=== PATIENT | male | born 1960 | race Caucasian/White ===

== ENCOUNTER → 2017-04-17 | Outpatient (CLI) | payer MEDICARE, MEDICAID ==
[~2017-04-17] MED LIST: AMITRIPTYLINE H25 M2 PO; AUGMENTIN 875875 MG PO; CARAFATE 1 GM TA1 G1 PO; FIRST-MOUTHWAS237 ML SWISH&SPIT; HYDROCODON-ACE1 EAC5 PO; HYDROCODONE-AP1 EAC6 PO; KLOR-CON20 ME1 PO; LACTULOSE10 GM/15 M PO; METFORMIN HCL500 MG PO; MUCUS RELIEF C400 MG PO; NAPROSYN; NORCO 5-325 TA1 EACH PO; PERIDEX 0.12%473 M1 SWISH&SPIT; PRILOSEC40 MG PO; SLEEP AID50 MG PO; SYNTHROID88 MCG PO; TRINATE TABLET1 TAB PO; VANCOMYCIN100 MG/ML PO; VITAMIN B-1100 M1 PO; VITAMIN D 5050000 I1 PO; XIFAXAN550 M1 PO; ZOFRAN ODT4 MG PO
--- NOTE | 2017-04-29 23:16 | ONC ---
[place] [address] RADIATION ONCOLOGY NOTE Name: PATRICA AQUINO Room: [facility]#: [id number] Admission: 04/17/17 Attend Phys: Alessandro Pastor MD Discharge: Date of : 56 Report #: [id number] THIS REPORT FOR: //name// CC: Hung Fajardo MD DATE OF SERVICE: 04/17/2017 REFERRING PHYSICIANS: Include Hung Suarez MD; Chandan Diaz DO; Delon Odell MD; JOSE ARMANDO Piña; and Stewart Fajardo MD. [facility] phone is [phone]. 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 He had perineural invasion. The patient completed radiation therapy on 06/10/2013. INTERVAL NOTE: The patient is edentulous, but he feels like he is eating well. He indicated that his primary care physician, Dr. Suarez, manages his thyroid medication. MEDICATIONS: He thinks he is taking 150 mcg of levothyroxine per day as well as metformin, omeprazole, and amitriptyline. SOCIAL HISTORY: The patient is . Cigarettes: He quit smoking in 07/2013. Prior to that, he smoked about a 1/2 to 1 pack per day for about 40 years. REVIEW OF SYSTEMS: RESPIRATORY: Breathing was stable. He was not short of breath during his appointment. MUSCULOSKELETAL: He has good range of motion of his upper extremities. PHYSICAL EXAMINATION: VITAL SIGNS: The patient weighed 265.2 pounds on 04/17/2017 and then 246 pounds on 09/10/2017, On 04/17/2017, blood pressure was 152/91, pulse 76, respirations 24. LYMPH NODES: The patient had no palpable cervical or supraclavicular lymphadenopathy. HEAD, EYES, EARS, NOSE AND THROAT: Mouth had no suspicious visible lesions or suspicious palpable lesions. He has a surgical defect on the left side of the tongue where [place] [address] RADIATION ONCOLOGY NOTE Name: PATRICA AQUINO Room: [facility]#: [id number] Admission: 04/17/17 Attend Phys: Alessandro Pastor MD Discharge: Date of : 56 Report #: [id number] HEART: Had a regular rate and rhythm without murmur. LUNGS: were clear to auscultation. RADIOLOGIC DATA: The patient had a low dose chest CT on 04/12/2017, which showed a stable 0.3 cm left upper nodule, which was unchanged, and thought to be a small scar or granuloma. There was some mild patchy opacities in the left upper lobe, which is thought to be pneumonitis. There were also some mild coronary artery calcifications. ASSESSMENT AND PLAN: 1. History of oral tongue cancer- There is no evidence of oral tongue cancer at this time. He was asked to schedule a follow up appointment to see me in about 6 months. 2. History of hepatitis C- The patient follows up with the nurse practitioner, Alexandria Antonio, with regards to this issue. 3. Hypothyroidism- The patient indicated that Dr. Suarez checks his thyroid function test and prescribes his levothyroxine. He indicated he is taking 150 mcg of levothyroxine per day and he was given a requisition for TSH in 08/2017 or 09/2017. He was asked to schedule a follow up appointment with me afterwards. 4. Xerostomia- The patient was given a prescription for pilocarpine to see if that helps resolve xerostomia. 5. Presumed upper respiratory infection- He was given a prescription for azithromycin for a presumed upper respiratory infection. Thank you for allowing me to participate in the care of this patient. <ELECTRONICALLY SIGNED> By: Alessandro Pastor MD 04/29/17 2316 [id number] Pastor MD /nt
== END ==
LOC: M.RTH 03-29 09:30
DX: Z08 Encounter for follow-up examination after completed treatment for malignant neoplasm (principal); E03.9 Hypothyroidism, unspecified; R68.2 Dry mouth, unspecified; J06.9 Acute upper respiratory infection, unspecified; Z85.810 Personal history of malignant neoplasm of tongue; Z86.19 Personal history of other infectious and parasitic diseases

== ENCOUNTER 2017-06-09 15:41 | Emergency (ER) | payer OTHER, MEDICARE, MEDICAID ==
[~2017-06-09] VITALS: Ht 185.4 cm; Wt 113.4 kg
[~2017-06-09 15:41] MED LIST changes: -SYNTHROID88 MCG PO
[2017-06-09] MEDS ORDERED: SYNTHROID88 MCG PO (15:52)
[2017-06-09] MEDS ORDERED: HYDROCODONE-AP1 EAC6 PO (18:31)
[2017-06-09 18:45] VITALS: BP 159/95
== END 2017-06-09 18:47 | disposition home or self-care (01) ==
LOC: M.ERS 15:41
DX: S22.42XA Multiple fractures of ribs, left side, initial encounter for closed fracture (principal); S16.1XXA Strain of muscle, fascia and tendon at neck level, initial encounter; S29.012A Strain of muscle and tendon of back wall of thorax, initial encounter; M19.90 Unspecified osteoarthritis, unspecified site; Z86.19 Personal history of other infectious and parasitic diseases; Z87.891 Personal history of nicotine dependence; V89.2XXA Person injured in unspecified motor-vehicle accident, traffic, initial encounter; Y93.89 Activity, other specified; Y92.89 Other specified places as the place of occurrence of the external cause; Y99.8 Other external cause status

== ENCOUNTER → 2017-10-23 | Outpatient (CLI) | payer MEDICARE, MEDICAID ==
[~2017-10-23] MED LIST changes: +SYNTHROID88 MCG PO
== END ==
LOC: M.LAB 11:12
DX: E03.9 Hypothyroidism, unspecified (principal); M19.90 Unspecified osteoarthritis, unspecified site; Z85.810 Personal history of malignant neoplasm of tongue

== ENCOUNTER → 2017-11-06 | Outpatient (CLI) | payer MEDICARE, MEDICAID ==
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
== END ==
LOC: M.RTH 03:01
DX: Z08 Encounter for follow-up examination after completed treatment for malignant neoplasm (principal); E03.9 Hypothyroidism, unspecified; K11.7 Disturbances of salivary secretion; Z85.810 Personal history of malignant neoplasm of tongue; Z86.19 Personal history of other infectious and parasitic diseases; Z87.891 Personal history of nicotine dependence

== ENCOUNTER → 2018-08-22 | Outpatient (CLI) | payer MEDICARE, MEDICAID ==
--- NOTE | ~2018-08-22 | ONC ---
[address] [address] RADIATION ONCOLOGY NOTE Name: PATRICA AQUINO Room: [facility]#: [id number] Admission: 08/22/18 Attend Phys: Alessandro Pastor MD Discharge: Date of : 56 Report #: [id number] THIS REPORT FOR: //name// CC: Alessandro Syed DATE OF SERVICE: 08/22/2018 RADIATION ONCOLOGY FOLLOWUP NOTE REFERRING PHYSICIANS: Dr. Langston, Dr. Alex Ross, Dr. Chandan Diaz, Dr. Delon Odell and Alexandria Antonio, nurse practitioner. [facility] phone is [phone]. PRIMARY SITE AND HISTOPATHOLOGY: The patient received postoperative radiation therapy for T1 N0 M0 tongue cancer that was resected. There was perineural invasion present. The patient completed radiation therapy on 06/10/2013. INTERVAL NOTE: The patient is edentulous and he is now living at the [facility] and he says they gave him all his medications. He feels like he is eating well. His voice is stable. He has been able to eat regular food such as sticks and potatoes. MEDICATIONS: He takes about 175 mcg of levothyroxine per day. He has been placed on iron supplements. He has also again been 175 mcg of levothyroxine per day. He also takes omeprazole, pilocarpine and insulin. SOCIAL HISTORY: The patient is . Cigarettes, he quit smoking in 07/2013. Prior to that, he smoked about a half to 1 pack per day for about 40 years. REVIEW OF SYSTEMS: RESPIRATORY: Breathing was stable. The patient was not short of breath during his appointment. MUSCULOSKELETAL: He had good range of motion of his upper extremities. PHYSICAL EXAMINATION: VITAL SIGNS: The patient weighed 257.2 pounds on 08/22/2018 and 258.8 pounds on 11/06/2017 and on 08/22/2017, blood pressure is 108/76, pulse 74, oxygen saturation was 98% and respirations were 20. LYMPH NODES: The patient had no palpable cervical or supraclavicular lymphadenopathy. HEAD, EYES, EARS, NOSE AND THROAT: Mouth had no visible lesions. The patient has a surgical defect on the left side of the tongue, which has been stable. That is where he had his resection. HEART: Had a regular rate [place] [address] RADIATION ONCOLOGY NOTE Name: PATRICA AQUINO Room: [facility]#: [id number] Admission: 08/22/18 Attend Phys: Alessandro Pastor MD Discharge: Date of : 56 Report #: [id number] LUNGS: Clear to auscultation. LABORATORY DATA: He had a TSH checked on 08/13/2018, which is 3.71, which was within normal limits on his present dose of 75 mcg of levothyroxine per day. On 07/10/2018, his white blood cell count was 2.4, hemoglobin 10.8 and platelets were 113,000. RADIOLOGIC DATA: The patient had a screening chest CT on 08/18/2018, which revealed a nodule in the right upper lobe, not clearly seen on prior CT, which was thought to be in endobronchial mucus plug and then there was another tiny left upper lobe nodule, which is unchanged and they recommended following it with annular dose chest CT. He had several healing rib fractures and cirrhotic liver morphology. ASSESSMENT AND PLAN: 1. History of oral tongue cancer. There was no evidence of oral tongue cancer at this time. the patient had a TSH ordered in 1 year as well as a screening chest CT and was asked to schedule a followup appointment to see me afterwards. 2. History of hepatitis C. The patient follows up with his nurse practitioner, Alexandria Antonio, with regards to this issue. 3. Hypothyroidism. The patient's TSH was within normal limits with him taking 175 mcg of levothyroxine per day, so he was given a refill for 175 mcg of levothyroxine. A TSH was ordered in about 1 year and he was asked to schedule a followup appointment to see me afterwards. 5. Xerostomia. The patient has been taking pilocarpine for xerostomia and right now, the rehabilitation center is providing him with that. 6. Cigarette smoking history. The patient had a low dose screening chest CT ordered in about a year and he was asked to schedule a followup appointment to see me afterwards. Thank you for allowing me to participate in the care of this patient. By: 1203 [id number] Pastor MD /marcos
== END ==
LOC: M.RTH 04-23 09:30
DX: Z08 Encounter for follow-up examination after completed treatment for malignant neoplasm (principal); E03.9 Hypothyroidism, unspecified; K11.7 Disturbances of salivary secretion; Z87.891 Personal history of nicotine dependence; Z85.810 Personal history of malignant neoplasm of tongue

== ENCOUNTER → 2020-01-29 | Outpatient (CLI) | payer MEDICARE, MEDICAID ==
--- NOTE | 2020-01-31 12:46 | ONC ---
[place] [address] RADIATION ONCOLOGY NOTE Name: PATRICA AQUINO Room: [facility]#: [id number] Admission: 01/29/20 Attend Phys: Alessandro Pastor MD Discharge: Date of : 56 Report #: [id number] THIS REPORT FOR: //name// CC: Alessandro Suarez. DATE OF SERVICE: 01/29/2020 RADIATION ONCOLOGY FOLLOWUP NOTE REFERRING PHYSICIANS: Dr. Anne, Dr. Chandan Diaz, Dr. Delon Odell, Dr. Jason Syed, and Dr. Hung Suarez. [facility] phone is [phone]. PRIMARY SITE AND HISTOPATHOLOGY: The patient received postoperative radiation therapy for a T1 N0 M0 oral tongue cancer that was resected. Perineural invasion was present. The patient completed radiation therapy on 06/10/2013. INTERVAL NOTE: The patient is edentulous. He wears dentures. He was initially residing in a [facility], but now he has moved into his own apartment. He has changed primary care physicians and now his primary care physician is Dr. Anne. He felt like he was eating well. He tends to eat microwavable foods like spaghetti. He was not taking levothyroxine for several weeks and then Dr. Anne restarted him on levothyroxine and he started him on 225 mcg per day. MEDICATIONS: includes 325 mg of aspirin per day, atorvastatin, baclofen, betamethasone, Zyrtec as needed, coal tar extract shampoo, Flonase as needed, Lasix, Neurontin, insulin, 225 mcg of levothyroxine per day, melatonin at night, Prilosec, 5 mg of Salagen 3 times a day, 25 mg of Zoloft per day, 25 mg of Topamax per day, 50 mg of Ultram per day and 50 mg of trazodone at night. SOCIAL HISTORY: The patient is . Cigarettes: he quit smoking in 07/2013. Prior to that, he smoked about half to one pack per day for about 40 years. REVIEW OF SYSTEMS: RESPIRATORY: Breathing was stable. He was not short of breath. MUSCULOSKELETAL: He has good range of motion of his upper extremities. LABORATORY DATA: From 01/11/2020, BUN 5, creatinine 1.0, sodium 138, potassium was 3.3, which was slightly lower than normal, the normal level was 3.5-5.2[place] [address] RADIATION ONCOLOGY NOTE Name: PATRICA AQUINO Room: [facility]#: [id number] Admission: 01/29/20 Attend Phys: Alessandro Pastor MD Discharge: Date of : 56 Report #: [id number] Calcium was 9.0, albumin 4.3, alkaline phosphatase 119, AST 29, ALT 20. PSA was 1.1. TSH on 01/11/2020 was 44.65 (the patient did not take his levothyroxine for several weeks). He was restarted on levothyroxine by his primary care physician, Dr. Anne and he was restarted at 225 mcg per day. White blood count was 4.4, hemoglobin 15.1 and platelets were 148,000. A screening chest [facility] at [facility] on 09/09/2019 revealed a single 0.9 cm noncalcified nodule in the right lung base and recommended a 6-month followup CT. ASSESSMENT AND PLAN: 1. History of oral tongue cancer- There is no evidence of oral tongue cancer at this time. Lab work was ordered in about 2-3 months. He was asked to schedule a follow up appointment with me afterwards. 2. History of hepatitis C- He follows up with his primary care physician, Dr. Anne with regards to this issue. 3. Hypothyroidism- His primary care physician had increased his levothyroxine from 175 mcg per day up to 225 mcg [address] day and Dr[address] Anne prescribes his Levothyroxine. Lab work, including a TSH was ordered in about 2 months and he was asked to schedule a follow up appointment with me afterwards. His primary care physician is prescribing his levothyroxine for him. 4. Xerostomia- The patient takes pilocarpine and his primary care physician has been prescribing that for him. 5. Cigarette smoking history- The patient had a lung nodule seen on his August CT scan, which could be scar tissue. Lab work and a repeat chest CT was ordered sometime in February 2020 or March 2020. He was asked to schedule a follow up appointment with me afterwards. Thank you for allowing me to participate in the care of this patient. <ELECTRONICALLY SIGNED> By: Alessandro Pastor MD 01/31/20 1246 1158 1229Alessandro Pastor MD /nt
== END ==
LOC: M.RTH 08-21 09:45
PROVIDERS: ATTEND Radiology Radiation Oncology
DX: Z08 Encounter for follow-up examination after completed treatment for malignant neoplasm (principal); K11.7 Disturbances of salivary secretion; E03.9 Hypothyroidism, unspecified; Z87.891 Personal history of nicotine dependence; Z85.810 Personal history of malignant neoplasm of tongue; Z92.3 Personal history of irradiation

== ENCOUNTER → 2020-04-01 | Outpatient (CLI) | payer OTHER, MEDICAID ==
[2020-04-01 08:42] LABS: CALCIUM 8.9 mg/dL (8.5-10.1); POTASSIUM 3.5 mmol/L (3.5-5.1)
== END ==
LOC: M.LAB 08:00 → M.CT 09:00
PROVIDERS: ATTEND Radiology Radiation Oncology
DX: R91.1 Solitary pulmonary nodule (principal); J98.4 Other disorders of lung; R16.1 Splenomegaly, not elsewhere classified

== ENCOUNTER → 2020-04-22 | Outpatient (CLI) | payer OTHER, MEDICAID ==
--- NOTE | ~2020-04-22 | ONC ---
[address] [address] RADIATION ONCOLOGY NOTE Name: PATRICA AQUINO Room: [facility]#: [id number] Admission: 04/22/20 Attend Phys: Alessandro Pastor MD Discharge: Date of : 56 Report #: [id number] THIS REPORT FOR: cc: Jason Syed MD, Matthew W. MD ~ Alessandro Pastor MD DATE OF SERVICE: 04/22/2020 RADIATION ONCOLOGY FOLLOWUP NOTE REFERRING PHYSICIANS: Chandan Diaz DO; Delon Odell MD; Levi Anne DO [facility] phone is [phone]. PRIMARY SITE AND HISTOPATHOLOGY: The patient received postoperative radiation therapy for T1 N0 M0 oral tongue cancer that was resected and perineural invasion was present. The patient completed radiation therapy on 06/10/2013. INTERVAL NOTE: The patient is edentulous. He wears dentures presently. He said he had the COVID-19 infection in 11/2019. He feels like he has recovered, though he has noticed a little more short of breath with moderate exertion. He follows up with his primary care physician, Dr. Levi Anne. Dr. Anne provides him with his refills for his levothyroxine as well as his pilocarpine prescription. The patient felt like he was eating well. He eats microwavable food such as spaghetti. He eats a regular diet. MEDICATIONS: Include 325 mg of aspirin per day, atorvastatin, baclofen, betamethasone, Zyrtec as needed, coal tar extract shampoo, Flonase as needed, Lasix, Neurontin, insulin, 225 mcg of levothyroxine per day, melatonin at night, Prilosec, 5 mg of Salagen 3 times a day, 25 mg of Zoloft per day and 25 mg of Topamax per day, 50 mg of Ultram per day and 50 mg of trazodone at night. SOCIAL HISTORY: The patient is . Cigarettes, he quit smoking in 07/2013. Prior to that, he had about a [id number] smoking history. REVIEW OF SYSTEMS: RESPIRATORY: Breathing was stable. He was not short of breath at rest. MUSCULOSKELETAL: He has good range of motion of his upper extremities. LABORATORY DATA: From 04/01/2020, his TSH was 0.446, which was within normal limits with him taking 225 mcg of levothyroxine per day. Sodium was 143, potassium was 3.5, BUN 10, creatinine 1.0. RADIOLOGIC DATA: The patient had a chest [facility] at [facility] on 04/01/2020 and the patient has a stable nodule in the right lung base that is unchanged from previous scans and there were no [place] [address] RADIATION ONCOLOGY NOTE Name: PATRICA AQUINO Room: [facility]#: [id number] Admission: 04/22/20 Attend Phys: Alessandro Pastor MD Discharge: Date of : 56 Report #: [id number] does have moderate splenomegaly, which appears similar to what it was on 09/05/2015. A radiologist indicated evaluation for chronic lymphoma or leukemia could be useful. PHYSICAL EXAMINATION: VITAL SIGNS: The patient weighed 278.8 pounds on 04/22/2020. He was 274.6 pounds on 01/29/2020 and on 04/22/2020, blood pressure was 130/84, pulse 90, respirations 24, temperature 98.7 degrees Fahrenheit, oxygen saturation 100%. LYMPH NODES: The patient had no palpable cervical or supraclavicular lymphadenopathy. HEAD, EYES, EARS, NOSE AND THROAT: Mouth had no suspicious visible lesions or suspicious palpable lesions. Mouth: The patient has a surgical defect on the left side of the tongue where he had his resection. HEART: Had a regular rate and rhythm without murmur. LUNGS: Clear to auscultation. ASSESSMENT AND PLAN: 1. History of oral tongue cancer. There is no evidence of oral tongue cancer at this time. The patient was asked to follow up with me in about 1 year. 2. History of hepatitis C. He continues to follow up with his primary care physician, Dr. Anne in the regards to that issue and that hepatitis C was treated in the past. 3. Hypothyroidism. His TSH is within normal limits with him taking 225 mcg of levothyroxine per day and Dr. Anne prescribes his levothyroxine. 4. Xerostomia. The patient takes pilocarpine as prescribed by Dr. Anne. 5. Cigarette smoking history. A screening chest CT will be ordered for next year and the patient will be asked to follow up with me afterwards. 6. Splenomegaly -- he will be referred to Dr. Torres to see how to manage the splenomegaly. Thank you for allowing me to participate in the care of this patient. By: 1145 1233Dronda Pastor MD /nt
== END ==
LOC: M.RTH 10:28
PROVIDERS: ATTEND Radiology Radiation Oncology
DX: Z51.0 Encounter for antineoplastic radiation therapy (principal); R16.1 Splenomegaly, not elsewhere classified; E03.9 Hypothyroidism, unspecified; K11.7 Disturbances of salivary secretion; Z85.810 Personal history of malignant neoplasm of tongue